=== PATIENT | female | born 1965 | race Caucasian/White ===

== ENCOUNTER 2018-07-31 12:35 | Emergency (ER) | payer BC ==
[2018-07-31 12:42] VITALS: RESP 18
[2018-07-31 13:18] LABS: Basophils % (A) 0 %; Eosinophils # (A) 0.1 k/uL (0-0.7); Eosinophils % (A) 1 %; HCT 39.3 % (34.0-46.0); HGB 12.8 gm/dL (11.4-16.0); Lymphocytes # (A) 1.4 k/uL (1.0-4.8); Lymphocytes % (A) 17 %; MCHC 32.7 g/dL (31.0-37.0); MCV 91.6 fL (80.0-100.0); Monocytes # (A) 0.4 k/uL (0-1.0); Monocytes % (A) 5 %; Neutrophils # (A) 6.1 k/uL (1.3-7.7); Neutrophils % (A) 76 %; Platelet Count 263 k/uL (150-450); RBC 4.29 m/uL (3.80-5.40)
--- NOTE | 2018-07-31 13:20 | XR ---
EXAMINATION TYPE: XR chest 2V DATE OF EXAM: 07/31/2018 COMPARISON: NONE HISTORY: Chest pain TECHNIQUE: Frontal and lateral views of the chest are obtained. FINDINGS: There is no focal air space opacity. No evidence for pneumothorax. No pleural effusion. The cardiac silhouette size is within normal limits. The osseous structures are grossly intact. IMPRESSION: 1. No acute cardiopulmonary process.
[2018-07-31 13:32] LABS: ALT 29 U/L (9-52); AST 22 U/L (14-36); Albumin 3.7 g/dL (3.5-5.0); Alkaline Phosphatase 128 U/L (38-126); Anion Gap 8 mmol/L; Blood Urea Nitrogen 15 mg/dL (7-17); Calcium 9.1 mg/dL (8.4-10.2); Carbon Dioxide 26 mmol/L (22-30); Chloride 106 mmol/L (98-107); Glucose 96 mg/dL (74-99); Potassium 3.9 mmol/L (3.5-5.1); Sodium 140 mmol/L (137-145); Total Bilirubin 0.6 mg/dL (0.2-1.3); Total Protein 6.6 g/dL (6.3-8.2)
[2018-07-31 13:40] LABS: INR 0.9 (<1.2); Prothrombin Time 9.6 sec (9.0-12.0)
[2018-07-31 13:44] LABS: Partial Thromboplastin Time 18.8 sec (22.0-30.0)
--- NOTE | 2018-07-31 14:18 | ED ---
Chest Pain HPI - General Chief Complaint: Chest Pain Stated Complaint: Chest Pain Time Seen by Provider: 07/31/18 12:44 Source: patient Mode of arrival: EMS Limitations: no limitations - History of Present Illness Initial Comments: Patient complains of chest pain. She describes the pain as pressure. It radiates the left side. She had nausea and diaphoresis. Her states she looked white as a ghost. She has no palpitations. She has no pain or swelling the legs. She was given aspirin and nitroglycerin by EMS prior to arrival. She had no sick a be. She has no back pain. She has no lightheadedness or dizziness. She has no focal weakness. - Related Data Home Medications Medication Instructions Recorded Confirmed Amitriptyline HCl [Elavil] 50 mg PO HS 07/31/18 07/31/18 Aspirin EC [Ecotrin Low Dose] 81 mg PO DAILY 07/31/18 07/31/18 Atorvastatin [Lipitor] 40 mg PO DAILY 07/31/18 07/31/18 Clopidogrel Bisulfate [Plavix] 75 mg PO DAILY 07/31/18 07/31/18 Furosemide [Lasix] 40 mg PO DAILY 07/31/18 07/31/18 Gabapentin [Neurontin] 300 mg PO TID 07/31/18 07/31/18 Metoprolol Tartrate 12.5 mg PO BID 07/31/18 07/31/18 Omeprazole 20 mg PO BID 07/31/18 07/31/18 Sertraline [Zoloft] 200 mg PO DAILY 07/31/18 07/31/18 Allergies Allergy/AdvReac Type Severity Reaction Status Date / Time morphine AdvReac Hallucinati Verified 07/31/18 13:40 ons Review of Systems ROS Statement: Those systems with pertinent positive or pertinent negative responses have been documented in the HPI. ROS Other: All systems not noted in ROS Statement are negative. EKG Findings - EKG Comments: EKG Findings:: Twelve-lead EKG interpreted by me as showing ventricular rate 71 bpm, normal MI interval and Karthik conference, no ST elevation or depression, interpreted by me as normal sinus and. Past Medical History Past Medical History: Myocardial Infarction ([place]) History of Any Multi-Drug Resistant Organisms: None Reported Past Surgical History: Section, Coronary Bypass/CABG, Heart Catheterization With Stent, Hysterectomy Past Psychological History: Anxiety, Depression Smoking Status: Current every day smoker Past Alcohol Use History: None Reported Past Drug Use History: None Reported General Exam Limitations: no limitations General appearance: alert, in no apparent distress Head exam: Present: atraumatic, normocephalic, normal inspection Eye exam: Present: normal appearance, PERRL, EOMI. Absent: scleral icterus, conjunctival injection, periorbital swelling ENT exam: Present: normal exam, mucous membranes moist Neck exam: Present: normal inspection. Absent: tenderness, meningismus, lymphadenopathy Respiratory exam: Present: normal lung sounds bilaterally. Absent: respiratory distress, wheezes, rales, rhonchi, stridor Cardiovascular Exam: Present: regular rate, normal rhythm, normal heart sounds. Absent: systolic murmur, diastolic murmur, rubs, gallop, clicks GI/Abdominal exam: Present: soft, normal bowel sounds. Absent: distended, tenderness, guarding, rebound, rigid Extremities exam: Present: normal inspection, full ROM, normal capillary refill. Absent: tenderness, pedal edema, joint swelling, calf tenderness Back exam: Present: normal inspection Neurological exam: Present: alert, oriented X3, CN II-XII intact Psychiatric exam: Present: normal affect, normal mood Skin exam: Present: warm, dry, intact, normal color. Absent: rash Course Vital Signs 07/31/18 07/31/18 12:38 14:12 Temperature 97.8 F Pulse Rate 66 64 Respiratory 18 18 Rate Blood Pressure 115/60 128/77 O2 Sat by Pulse 100 99 Oximetry Chest Pain MDM - Core Measures AMI Core Measures Followed: Yes - MDM Patient presents with chest pain. She has an elevated heart score. She will be admitted to the hospital. Disposition Clinical Impression: Chest pain Disposition: ADMITTED IP TO THIS HOSP Condition: Fair Referrals: Sakshi Mead MD [Primary Care Provider] - 1-2 days
[2018-07-31] MEDS ORDERED: NALOXONE 0.4 MG/ML 1 ML VIAL IV PRN (14:19)
[2018-07-31 15:37] VITALS: BP 122/63; PULSE 70; TEMP 98
[2018-07-31] MEDS ORDERED: GABAPENTIN 300 MG CAP PO SCH (16:00)
[2018-07-31] MEDS ORDERED: METOPROLOL TARTRATE 25 MG TAB PO SCH (21:00)
[2018-07-31] MEDS ORDERED: AMITRIPTYLINE HCL 50 MG TAB PO SCH (21:00)
[2018-07-31] MEDS ORDERED: NON-FORMULARY DRUG (Omeprazole [Omeprazole] 20 MG) PO SCH (21:00)
[2018-08-01] MEDS ORDERED: SERTRALINE 100 MG TAB PO SCH (09:00)
[2018-08-01] MEDS ORDERED: ASPIRIN 81 MG PO SCH (09:00)
[2018-08-01] MEDS ORDERED: FUROSEMIDE 40 MG TAB PO SCH (09:00)
[2018-08-01] MEDS ORDERED: CLOPIDOGREL 75 MG TAB PO SCH (09:00)
[2018-08-01] MEDS ORDERED: ATORVASTATIN 40 MG TAB PO SCH (09:00)
== END 2018-07-31 15:31 | disposition left against medical advice (07) ==
LOC: EC 12:35
DX: R07.89 Other chest pain (principal); R11.0 Nausea; R61 Generalized hyperhidrosis; I25.2 Old myocardial infarction; F32.9 Major depressive disorder, single episode, unspecified; F41.9 Anxiety disorder, unspecified; F17.200 Nicotine dependence, unspecified, uncomplicated; Z79.899 Other long term (current) drug therapy; Z88.5 Allergy status to narcotic agent; Z79.01 Long term (current) use of anticoagulants; Z79.82 Long term (current) use of aspirin; Z95.1 Presence of aortocoronary bypass graft; Z95.5 Presence of coronary angioplasty implant and graft
CPT/HCPCS: 36415; 71046; 80053; 83735; 83880; 84484; 85025; 85610; 85730; 93005; 99285